=== PATIENT | male | born 1970 ===

== ENCOUNTER 2017-11-14 05:20 | Inpatient (IN) | payer OTHER ==
[~2017-11-14] VITALS: Ht 170.2 cm; Wt 88.5 kg
[2017-11-14] VITALS (12 sets, daily range): BP systolic 92–126; BP diastolic 51–77
[2017-11-14] MEDS ORDERED: NKM (06:20)
[2017-11-14] MEDS ORDERED: Lidocaine 1% MPF 10mg/ml 5ml ONE (06:57)
[2017-11-14] MEDS ORDERED: fentaNYL 100 mcg/2 mL IV ONE (06:57)
[2017-11-14] MEDS ORDERED: Midazolam 2mg/2ml Inj ONE (06:57)
[2017-11-14] MEDS ORDERED: ceFAZolin sod 2 GM in D5W 110 ML IVPB ONE (07:00)
[2017-11-14] MEDS ORDERED: Succinylcholine 20mg/ml 10ml vial ONE ×2 (07:15→09:30)
[2017-11-14] MEDS ORDERED: Zemuron 50mg/5ml Inj IV ONE (07:15)
[2017-11-14] MEDS ORDERED: EPINEPHrine 1mg/1ml Amp ONE (07:17)
[2017-11-14] MEDS ORDERED: Heparin 5000 units/ml inj ONE (07:17)
[2017-11-14] MEDS ORDERED: Bacitracin 50000 Units Vial ONE (07:18)
[2017-11-14] MEDS ORDERED: Bupivacaine 0.5% Inj 30 ml vial INJ ONE (07:18)
[2017-11-14] MEDS ORDERED: Gelfoam Size TOPIC ONE (07:18)
[2017-11-14] MEDS ORDERED: Thrombin 5000 units TOPIC ONE (07:18)
--- NOTE | 2017-11-14 07:34 | Pre-Procedure Note/Attestation ---
Pre-Procedure Note/Attestation Complete Prior to Procedure Procedure Narrative: ACDF C67 WITH ILIAC CREST BONE MARROW ASPIRATION Indications for Procedure Pre-Operative Diagnosis: CERVICAL RADICULOPATHY Attestation I attest that I discussed the nature of the procedure; its benefits; risks and complications; and alternatives (and the risks and benefits of such alternatives ), prior to the procedure, with the patient (or the patient's legal agency sales representative). I attest that, if there was a reasonable possibility of needing a blood transfusion, the patient (or the patient's legal agency sales representative) was given the [facility] standardized written summary, pursuant to the Anthony Marlene Blood Safety Act ([place] Health and Safety Code # 1645, as amended). I attest that I re-evaluated the patient just prior to the surgery and that there has been no change in the patient's H&P, except as documented below: Barrington Van MD Nov 14, 2017 07:34
[2017-11-14] MEDS ORDERED: Phenylephrine 10mg/ml Vial ONE (08:07)
[2017-11-14] MEDS ORDERED: Morphine Sulfate 10mg/ml Inj ONE (08:38)
[2017-11-14] MEDS ORDERED: Glycopyrrolate 0.2mg/ml 1ml Vial ONE (08:39)
[2017-11-14] MEDS ORDERED: Sodium Chloride 10ml vial INJ ONE (08:39)
[2017-11-14] MEDS ORDERED: Ketorolac 30mg Inj ONE (08:47)
[2017-11-14] MEDS ORDERED: LR 1000ml 1,000 ML IVLG SCH (08:59)
--- NOTE | 2017-11-14 08:59 | Anethesia Preoperative Eval ---
Anesthesia Pre-op PMH/ROS General Date of Evaluation: Nov 14, 2017 Time of Evaluation: 07:15 Anesthesiologist: Killian ASA Score: ASA 2 Mallampati Score Class I : Soft palate, uvula, fauces, pillars visible Class II: Soft palate, uvula, fauces visible Class III: Soft palate, base of uvula visible Class IV: Only hard plate visible Mallampati Classification: Class II Surgeon: Rehan Diagnosis: Cervical radiculopathy Surgical Procedure: ACDF C6-C7 Anesthesia History: none Social History: smoking - h/o, alcohol use - h/o abuse, drug use - h/o Family History: no anesthesia problems Allergies: Coded Allergies: No Known Allergies (Unverified , 11/13/17) Medications: see eMAR Past Medical History Cardiovascular: Denies: HTN, CAD, VA, valve dz, arrhythmia, other Pulmonary: Denies: asthma, COPD, JASMIN, other Gastrointestinal/Genitourinary: Reports: GERD - mild; Denies: CRI, ESRD, other Neurologic/Psychiatric: Reports: other - chronic pain; Denies: dementia, CVA, depression/anxiety, TIA Endocrine: Denies: DM, hypothyroidism, steroids, other HEENT: Denies: cataract (L), cataract (R), glaucoma, [place] (L), [place] (R), other Hematology/Immune: Denies: anemia, DVT, bleeding disorder, other Musculoskeletal/Integumentary: Denies: OA, RA, DJD, DDD, edema, other Other: other - overweight PMH Narrative: as above PSxH Narrative: None Anesthesia Pre-op Phys. Exam Physician Exam Last Vital Signs Date Time Temp Pulse Resp B/P (MAP) Pulse Ox O2 Delivery O2 Flow Rate FiO2 11/14/17 06:24 Room Air 11/14/17 06:21 97.9 71 18 126/76 (93) 96 97.9 Constitutional: NAD Neurologic: CN 2-12 intact Cardiovascular: RRR, no M/R/G Respiratory: CTA Gastrointestinal: S/NT/ND Airway Exam Mallampati Score: Class II MO: full Neck: short ROM: full Teeth: intact Dentures: no upper, no lower Anesthesia Pre-op A/P Labs see chart Studies Pre-op Studies: EKG - NSR, CXR - WNL Risk Assessment & Plan Assessment: ASA 2 Plan: GA with ETT neuromonitoring Status Change Before Surgery: No Pre-Antibiotics Drug: Ancef 2 gr. Given Within 1 Hr of Incision: Yes Time Given: 08:15 Nghia Daily MD Nov 14, 2017 08:58
[2017-11-14] MEDS ORDERED: Midazolam 2mg/2ml Inj IVP PRN (09:00)
[2017-11-14] MEDS ORDERED: Ketorolac 30mg Inj IV PRN (09:00)
[2017-11-14] MEDS ORDERED: Meperidine 50mg/ml Inj(FOR RIGORS ONLY) IV PRN (09:00)
[2017-11-14] MEDS ORDERED: DiphenhydrAMINE 50mg/ml Inj IVP PRN (09:00)
[2017-11-14] MEDS ORDERED: fentaNYL 100 mcg/2 mL IV PRN (09:00)
[2017-11-14] MEDS ORDERED: Propofol 1,000mg/ 100ml btl IV ONE (09:30)
[2017-11-14] MEDS ORDERED: LR 1000ml ONE (09:30)
[2017-11-14] MEDS ORDERED: Sterile Water Irrig 1000ml IRRIG ONE (09:30)
[2017-11-14] MEDS ORDERED: NS Irrig 1000ml ONE (09:30)
[2017-11-14] MEDS ORDERED: Vancomycin 1gm inj IVPB ONE (09:46)
--- NOTE | 2017-11-14 10:37 | Diagnostic Imaging Report ---
INDICATION: Pain, intraoperative TECHNIQUE: Intraoperative imaging Fluoroscopy time: 12 seconds Total dose: 0.321 mGym2 Total number of images: 5 COMPARISON: None FINDINGS: Intraoperative images document a surgical tool anterior to the C6-7 disc, subsequent surgical tool projected over C5-6 level, subsequent anterior fusion of the lower cervical spine at C6-7. IMPRESSION: Intraoperative imaging, as described
--- NOTE | 2017-11-14 10:48 | Brief Operative Note ---
Immediate Post Operative Note Operative Note Pre-op Diagnosis: CERVICAL RADICULOPATHY Procedure: acdf c67 with iliac crest bone marrow aspirate Post-op Diagnosis: cervical radiculopathy Post-op Diagnosis: same as pre-op Findings: consistent w/pre-op dx studies Surgeon: LATOYA Sourcing Coordinator: JUAN Anesthesiologist: ZAINAB Anesthesia: general Specimen: yes Complications: none Condition: stable Fluids: 1000CC Estimated Blood Loss: none Drains: none Implant(s) used?: No Barrington Van MD Nov 14, 2017 10:48
--- NOTE | 2017-11-14 12:34 | Immediate Post-Op Evaluation ---
Immediate Post-Op Evalulation Immediate Post-Op Evalulation Procedure: ACDF C6-C7 Date of Evaluation: Nov 14, 2017 Time of Evaluation: 10:35 IV Fluids: 1000 Blood Products: none Estimated Blood Loss: <50 Urinary Output: 100 Blood Pressure Systolic: 124 Blood Pressure Diastolic: 72 Pulse Rate: 86 Respiratory Rate: 20 O2 Sat by Pulse Oximetry: 99 Temperature (Fahrenheit): 97.8 Pain Score (1-10): 1 Nausea: No Vomiting: No Complications none Patient Status: reacts, patent, extubated, none Hydration Status: adequate Nghia Daily MD Nov 14, 2017 12:34
[2017-11-14] MEDS ORDERED: Morphine Sulfate 2mg/ml Inj IV PRN (13:00)
[2017-11-14] MEDS ORDERED: Morphine Sulfate 4mg/ml Inj (IV USE ONLY) IV PRN (13:00)
[2017-11-14] MEDS ORDERED: Norco 5mg/325mg tab ORAL PRN (13:00)
[2017-11-14] MEDS ORDERED: Naloxone 0.4mg/ml Inj IVP PRN (13:00)
[2017-11-14] MEDS: Morphine Sulfate 4mg/ml Inj (IV USE ONLY) IV PRN ×2 (13:19→16:20)
[2017-11-14] MEDS: D5 1/2NS 1,000 ML IV SCH ×2 (13:19→21:42)
[2017-11-14] MEDS ORDERED: ceFAZolin sod 1 GM in D5W 55 ML IV SCH (14:00)
[2017-11-14] MEDS ORDERED: Acetaminophen (Non formulary) 100 ML IV ONE (15:00)
[2017-11-14] MEDS ORDERED: Chloraseptic Spray 20mL Bottle ORAL PRN (15:00)
[2017-11-14] MEDS: ceFAZolin 1gm/50ml Premix 50 ML IV SCH (16:20)
[2017-11-14] MEDS: HYDROcodone/Acetamin 7.5/325 tab ORAL PRN ×2 (18:25→21:42)
[2017-11-14] MEDS: Docusate 100mg cap ORAL SCH (18:25)
--- NOTE | 2017-11-14 21:25 | History and Physical ---
History of Present Illness General Date patient seen: Nov 14, 2017 Present Illness HPI 47 year old male with hx of cervical radiculopathy, admitted for ACDF C6-C7. Postoperatively, pt is admitted to medical floor for postop care. Allergies: Coded Allergies: No Known Allergies (Unverified , 11/13/17) Medication History Scheduled No Known Medications* (NKM - No Known Medications*), 0 ., (Reported) Scheduled PRN Hydrocodone Bit/Acetaminophen 5-325* ([place] 5-325*), 1 TAB ORAL Q6H PRN for For Pain, (Reported) Patient History Healthcare decision maker brianda(cathy) Resuscitation status Full Code Advanced Directive on File No Past Medical/Surgical History Past Medical/Surgical History: (1) Cervical radiculopathy Review of Systems All Other Systems: negative except mentioned in HPI Physical Exam General Appearance: WD/WN Lines, tubes and drains: peripheral HEENT: normocephalic Neck: non-tender, normal alignment, limited range of motion Respiratory/Chest: chest wall non-tender, lungs clear Cardiovascular/Chest: normal peripheral pulses Abdomen: normal bowel sounds Last 24 Hour Vital Signs Date Time Temp Pulse Resp B/P (MAP) Pulse Ox O2 Delivery O2 Flow Rate FiO2 11/14/17 16:00 98.4 75 20 113/77 (89) 98 98.4 11/14/17 13:49 97.6 11/14/17 12:41 Nasal Cannula 2.0 11/14/17 12:35 97.6 72 19 113/77 (89) 96 97.6 11/14/17 12:34 208.0 86 20 99 11/14/17 11:35 98.3 75 20 109/60 (76) 99 98.3 11/14/17 11:28 98.8 11/14/17 11:25 98.8 80 13 102/65 100 Nasal Cannula 3 98.8 11/14/17 11:10 80 17 111/62 100 Nasal Cannula 3 11/14/17 10:58 98.6 85 15 102/54 95 Nasal Cannula 3 98.6 11/14/17 10:58 98.5 11/14/17 10:50 83 14 104/65 95 Nasal Cannula 3 11/14/17 10:39 97 17 92/51 99 Simple Mask 6 11/14/17 10:34 96 15 92/56 99 Simple Mask 6 11/14/17 10:29 98.5 92 20 104/70 99 Simple Mask 6 98.5 11/14/17 06:24 Room Air 11/14/17 06:21 97.9 71 18 126/76 (93) 96 97.9 Intake and Output 11/13/17 11/14/17 19:00 07:00 # Voids 1 Height (Feet): 5 Height (Inches): 7.00 Weight (Pounds): 195 Medications Current Medications Medications (Trade) Dose Ordered Sig/Jairon Route PRN Reason Start Time Stop Time Status Last Admin Dose Admin Acetaminophen/ Hydrocodone Bitart ([place] 5/325) 1 tab Q3H PRN ORAL pain score 1-3 11/14/17 13:00 11/21/17 12:59 Acetaminophen/ Hydrocodone Bitart ([place] 7.5/325) 1 tab Q3H PRN ORAL pain score 4-6 11/14/17 13:00 11/21/17 12:59 Acetaminophen/ Hydrocodone Bitart ([place] 7.5/325) 2 tab Q3H PRN ORAL pain scale 7-10 11/14/17 13:00 11/21/17 12:59 11/14/17 18:25 Cefazolin Sodium 50 ml @ 100 mls/hr Q8H IV 11/14/17 16:00 11/21/17 15:59 11/14/17 16:20 Dextrose/Sodium Chloride 1,000 ml @ 100 mls/hr Q10H IV 11/14/17 13:00 12/14/17 12:59 11/14/17 13:19 Docusate Sodium (Colace) 100 mg TWICE A DAY ORAL 11/14/17 18:00 12/14/17 17:59 11/14/17 18:25 Morphine Sulfate (Morphine Sulfate) 2 mg Q4H PRN IV Mild Pain (Pain Scale 1-3) 11/14/17 13:00 11/21/17 12:59 Morphine Sulfate (Morphine Sulfate) 4 mg Q3H PRN IV Severe Pain (Pain Scale 7-10) 11/14/17 13:00 11/21/17 12:59 11/14/17 16:20 Morphine Sulfate (Morphine Sulfate) 4 mg Q4H PRN IV Moderate Pain (Pain Scale 4-6) 11/14/17 13:00 11/21/17 12:59 Naloxone HCl (Narcan) 0.1 mg PRN PRN IVP RR<12/min, pt unarousable 11/14/17 13:00 12/14/17 12:59 Phenol/Menthol (Chloraseptic) 1 spray Q3H PRN ORAL SORE THROAT 11/14/17 15:00 12/14/17 14:59 11/14/17 18:27 Assessment/Plan Problem List: (1) ACDF C6-C7 (2) Cervical radiculopathy ICD Codes: M54.12 - Radiculopathy, cervical region SNOMED: [id number] Assessment/Plan pain management symptomatic treatment dvt prophylaxis Teresita Lora MD Nov 14, 2017 21:25
--- NOTE | 2017-11-14 22:15 | Operative Note - Dictated ---
DATE OF OPERATION: 11/14/2017 PREOPERATIVE DIAGNOSIS: C6-C7 disc protrusion with stenosis and right upper extremity radiculopathy. POSTOPERATIVE DIAGNOSIS: C6-C7 disc protrusion with stenosis and right upper extremity radiculopathy. PROCEDURE PERFORMED: 1. Anterior cervical interbody fusion with diskectomy and anterior foraminotomy at C6-C7. 2. Anterior cervical instrumentation at C6-C7. 3. Application of biomechanical PEEK device at C6-C7. 4. Placement of allograft and local autograft and bone marrow aspirate concentrate at C6-C7. 5. Acquisition of bone marrow aspirate from the right iliac crest. SURGEON: Barrington Van M.D. TIRE ROOM SUPERVISOR: Joon Vazquez M.D. ANESTHESIA: General tracheal anesthesia. SPECIMEN: C6-C7 disk. ANESTHESIOLOGIST: Nghia Daily M.D. ESTIMATED BLOOD LOSS: Less than 50 mL. IV ANTIBIOTICS: 2 g of Ancef. COMPLICATIONS: None. BACKGROUND INDICATIONS: The patient is a pleasant gentleman who failed nonoperative treatment and option for above treatment was given. Risks, alternatives, and benefits were discussed with the patient at length. Risks include, but are not limited to, anesthesia complications including , medical complications including liver, kidney, cardiopulmonary deficits, dysphonia, dysphagia, hematoma of the neck, nerve root injury, paralysis, spinal cord injury, CSF leak, dural tear, fracture of the hardware, loosening of the hardware, need for revision, decompression and fusion, swallowing difficulties, esophageal injury, tracheal injury, recurrent laryngeal nerve injury as well as other complications including . The patient understood and wished to proceed. Written and verbal consent was given. All the patient's questions were answered. No guarantees were given. OPERATIVE FINDINGS: Herniated nucleus pulposus at C6-C7 with central stenosis, lateral recess stenosis, foraminal stenosis and impingement of the exiting C6 nerve roots bilaterally. DESCRIPTION OF OPERATION: The patient was brought into the operating room supine on a stretcher. Appropriate IV lines were placed by the anesthesiologist and 2 g of Ancef was administered. The patient was induced and intubated without complication. The patient was positioned on the operating room table. The neck was placed in a lordotic alignment. The arms were tucked by the side. All bony prominences were well padded as well as the extremities. SSEP neurophysiological leads and EMG leads were placed and remained stable throughout the case. Preoperative fluoroscopy revealed the planned incision to be over the C6-C7 interspace. Fluoroscopy showed the neck to be in adequate alignment. The neck was prepped and draped in usual sterile fashion. Me and my assistant attorney general were prepped and gowned appropriately. At this point, the incision was carried out with a scalpel on the anterior right side of the neck in the crease of the neck. Hemostasis was achieved with bipolar cautery. The platysma was incised in line with the skin incision. Blunt dissection was carried out in the interval between the strap muscles and the sternocleidomastoid. Superficial cervical fascia was dissected caudally as well as cephalad. Carotid pulse was palpated and found to be well lateral to the field of dissection. Deep cervical fascia was encountered. Once the deep cervical fascia was found, blunt dissection of the kidneys was carried out as well as finger dissection to find the prevertebral space. The longus colli was found on both sides of the spine. The longus coli was subperiosteally dissected off of the spine. At this point, retractors were set into place. Spinal needle was used to identify the C6-C7 level. The spinal needle was placed at the C6. The spinal needle was placed at the C5-C6 level as it was difficult to visualize the C6-C7 level. Once the C5-C6 level was found, [place] and the retractors were placed at the C6-C7 level and the C6-C7 level with marked appropriately. At this point, attention was diverted to the diskectomy. The intraoperatively sterilely draped microscope was used throughout the case from skin to skin as well as for microdissection of the neural elements. At this point with straight and curved curettes, #2 and #3 Kerrison punches, a radical diskectomy was done. Endplate cartilage was removed. Endplate bone was well preserved. A high-speed drill was used to do uncovertebrectomy to the level of the posterior longitudinal ligament. Once this was done, the disk space distractor was set into place and with a Microsect #2 curette, the PLL was carefully peeled off of the dural sac and was removed with the aid of #1 and #2 Kerrison punches for an anterior foraminotomy with exiting C7 nerve roots bilaterally was accomplished and significant stenosis centrally in the lateral recess as well as the foramina, which was completely patent by the end of the decompression. Valsalva 40 mmHg was done. There was no CSF leak. Complete decompression was assured. The disk space and the dura and the nerve roots were copiously irrigated with triple antibiotic solution. Before the case was started in the neck before the skin incision in the neck, the iliac crest was also prepped and draped in the usual sterile fashion, was prepped out along with the anterior neck. A Jamshidi needle was used to insert into the right iliac crest and 30 mL of bone marrow was aspirated from the right iliac crest in 3 different 10 mL vials and was sent off for concentration. Now, the concentrate was ready and the trials from the spinal element system was used at the C6-C7 level. A large footprint 7 mm in height lordotic PEEK interbody device from the spinal element system was chosen, was packed with [place] allograft and local autograft, which was harvested from the vertebral bodies as well as the bone marrow aspirate concentrate and this peek interbody device was now tamped into place at C6-C7 with excellent recreation of lordosis and apposition against the endplate. Once this was done, a 12 mm [place] anterior cervical plate was chosen, was bent into a lordotic shape, and was placed at C6-C7 and was fixed to the anterior surface of the C6 and C7 vertebral bodies with 14 mm self-drilling screws at C6 and 12 mm self-drilling screws at C7. Each screw had excellent purchase and sat below the locking mechanism of the Holland plate appropriately. Final AP and lateral fluoroscopy revealed all instrumentation to be in excellent position. Hemostasis was achieved with Gelfoam and cautery. There was no bleeding at the end of the case and therefore decision was made not to use a drain. The platysma was closed with 3-0 Vicryl sutures. The subcuticular layer was closed with 3-0 Monocryl suture. The skin was closed with Dermabond. Sterile dressing tape was placed at the hip as well as on the neck incision. All sponge, needle, and instrument counts were correct. There was no complications during the case. EBL was about 70 mL. A cervical collar was placed. The patient was extubated and taken to the recovery room in stable condition, was found to be neurovascularly intact, and was admitted to the hospital for monitoring. Barrington Van M.D. DR: AJAY JOB#: [id number] CC:
[2017-11-15] VITALS: BP 110/73
[2017-11-15] MEDS: ceFAZolin 1gm/50ml Premix 50 ML IV SCH ×2 (01:13→08:13)
[2017-11-15] MEDS: HYDROcodone/Acetamin 7.5/325 tab ORAL PRN ×2 (01:24→08:15)
[2017-11-15 04:00] VITALS: BP 110/64
[2017-11-15 08:00] VITALS: BP 141/78
[2017-11-15] MEDS: Docusate 100mg cap ORAL SCH (08:12)
[2017-11-15] MEDS: D5 1/2NS 1,000 ML IV SCH (08:15)
[2017-11-15] MEDS ORDERED: NORCO 5-325 TA1 EACH ORAL (08:59)
[2017-11-15 11:49] VITALS: BP 128/77
--- NOTE | 2017-11-15 12:07 | Pulmonology Progress Note ---
Assessment/Plan Problems: (1) ACDF C6-C7 (2) Cervical radiculopathy Assessment/Plan pain management symptomatic treatment dc planning dvt prophylaxis. Subjective ROS Limited/Unobtainable: No Constitutional: Reports: no symptoms HEENT: Repors: no symptoms Allergies: Coded Allergies: No Known Allergies (Unverified , 11/13/17) Objective Last 24 Hour Vital Signs Date Time Temp Pulse Resp B/P (MAP) Pulse Ox O2 Delivery O2 Flow Rate FiO2 11/15/17 11:49 97.5 80 18 128/77 (94) 80 97.5 11/15/17 09:00 Room Air 11/15/17 08:45 98.0 11/15/17 08:00 97.8 86 18 141/78 (99) 94 97.8 11/15/17 04:00 98.0 87 18 110/64 (79) 98 98.0 11/15/17 00:00 98.4 79 18 110/73 (85) 98 98.4 11/14/17 21:00 Room Air 11/14/17 20:00 97.7 79 20 119/71 (87) 98 97.7 11/14/17 16:00 98.4 75 20 113/77 (89) 98 98.4 11/14/17 13:49 97.6 11/14/17 12:41 Nasal Cannula 2.0 11/14/17 12:35 97.6 72 19 113/77 (89) 96 97.6 11/14/17 12:34 208.0 86 20 99 Intake and Output 11/14/17 11/15/17 19:00 07:00 Intake Total 2460 ml 1680 ml Output Total 130 ml Balance 2330 ml 1680 ml Intake Oral 660 ml 480 ml IV Total 1800 ml 1200 ml Output Urine Total 100 ml Estimated Blood Loss 30 ml # Voids 2 General Appearance: WD/WN HEENT: normocephalic, atraumatic Respiratory/Chest: chest wall non-tender, lungs clear Cardiovascular: normal peripheral pulses, normal rate Abdomen: normal bowel sounds, soft, non tender Genitourinary: normal external genitalia Skin: no rash 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 Lymphatic: no neck adenopathy Current Medications Medications (Trade) Dose Ordered Sig/Jairon Route PRN Reason Start Time Stop Time Status Last Admin Dose Admin Acetaminophen/ Hydrocodone Bitart ([place] 5/325) 1 tab Q3H PRN ORAL pain score 1-3 11/14/17 13:00 11/21/17 12:59 Acetaminophen/ Hydrocodone Bitart ([place] 7.5/325) 1 tab Q3H PRN ORAL pain score 4-6 11/14/17 13:00 11/21/17 12:59 11/15/17 01:24 Acetaminophen/ Hydrocodone Bitart ([place] 7.5/325) 2 tab Q3H PRN ORAL pain scale 7-10 11/14/17 13:00 11/21/17 12:59 11/15/17 08:15 Cefazolin Sodium 50 ml @ 100 mls/hr Q8H IV 11/14/17 16:00 11/21/17 15:59 11/15/17 08:13 Dextrose/Sodium Chloride 1,000 ml @ 100 mls/hr Q10H IV 11/14/17 13:00 12/14/17 12:59 11/15/17 08:15 Docusate Sodium (Colace) 100 mg TWICE A DAY ORAL 11/14/17 18:00 12/14/17 17:59 11/15/17 08:12 Morphine Sulfate (Morphine Sulfate) 2 mg Q4H PRN IV Mild Pain (Pain Scale 1-3) 11/14/17 13:00 11/21/17 12:59 Morphine Sulfate (Morphine Sulfate) 4 mg Q3H PRN IV Severe Pain (Pain Scale 7-10) 11/14/17 13:00 11/21/17 12:59 11/14/17 16:20 Morphine Sulfate (Morphine Sulfate) 4 mg Q4H PRN IV Moderate Pain (Pain Scale 4-6) 11/14/17 13:00 11/21/17 12:59 Naloxone HCl (Narcan) 0.1 mg PRN PRN IVP RR<12/min, pt unarousable 11/14/17 13:00 12/14/17 12:59 Ondansetron HCl (Zofran) 4 mg Q6H PRN IVP Nausea & Vomiting 11/14/17 22:00 12/14/17 21:59 11/15/17 01:24 Phenol/Menthol (Chloraseptic) 1 spray Q3H PRN ORAL SORE THROAT 11/14/17 15:00 12/14/17 14:59 11/14/17 18:27 Teresita Lora MD Nov 15, 2017 12:07
[2017-11-15 12:21] VITALS: BP 124/76
--- NOTE | 2017-11-15 12:21 | 48 Hour Post Anesthesia Eval ---
Post Anesthesia Evaluation Procedure: ACDF C6-C7 Date of Evaluation: Nov 15, 2017 Time of Evaluation: 12:20 Blood Pressure Systolic: 124 0: 76 Pulse Rate: 68 Respiratory Rate: 20 Temperature (Fahrenheit): 97.6 O2 Sat by Pulse Oximetry: 98 Airway: patent Nausea: No Vomiting: No Pain Intensity: 2 Hydration Status: adequate Cardiopulmonary Status: stable Mental Status/LOC: patient returned to baseline Follow-up Care/Observations: n/a Post-Anesthesia Complications: none Follow-up care needed: ready to discharge Nghia Daily MD Nov 15, 2017 12:21
--- NOTE | 2017-11-17 13:34 | Discharge Summary ---
Discharge Summary Hospital Course Date of Admission Nov 14, 2017 at 05:20 Date of Discharge Nov 15, 2017 at 12:00 Admitting Diagnosis cervical radiculopathy Reason for Hospitalization: elective surgery HPI Elmer Serna is a 47 year old male who was admitted on Nov 14, 2017 at 05: 20 for cervical radiculopathy Patient was admitted for elective surgery. Consultations dr Lora IM Procedures s/p 11/14/[address] Van 1. Anterior cervical interbody fusion with diskectomy and anterior foraminotomy at C6-C7. 2. Anterior cervical instrumentation at C6-C7. 3. Application of biomechanical PEEK device at C6-C7. 4. Placement of allograft and local autograft and bone marrow aspirate concentrate at C6-C7. 5. Acquisition of bone marrow aspirate from the right iliac crest. Hospital Course s/p surgery course of recovery uneventful initially IVF s/p empiric perioperative abx neurovascular intact dressing clean dry and intact pain management addressed and controlled ambulated freely [place] cervical collar on started on diet as tolerated Chloraseptic [place] prn for comfort able to tolerate tolerated diet voided freely bowel regimen instituted patient was stable for discharge discharge instruction provided outpatient follow-up with surgeon as advised FINAL DIAGNOSES cervical radiculopathy s/p ACDF C6- 7 with iliac crest bone marrow aspirate Discharge Medications Continued Medications: Hydrocodone Bit/Acetaminophen 5-325* ([place] 5-325*) 1 Each Tablet 1 TAB ORAL Q6H PRN for For Pain, #40 TAB 0 Refills (This prescription has been renewed) Discharge Condition Upon Discharge: stable Discharge Disposition Patient was discharged to Home (01) Discharge Instructions Discharge Instructions Special Instructions I have been assigned to complete a D/C Summary on this account. I was not involved in the patient management Aisha Hayes CONTINUOUS PROCESS TANNER ROTARY DRUM Nov 17, 2017 13:34
== END 2017-11-15 12:00 | disposition home or self-care (01) | DRG 473 ==
LOC: SDSOVERFLO 05:20 → 3E 11:13
PROC: 0RB30ZZ Excision of Cervical Vertebral Disc, Open Approach (ICD-10-PCS; principal; 2017-11-14 07:30)
PROC: 07DR3ZZ Extraction of Iliac Bone Marrow, Percutaneous Approach (ICD-10-PCS; principal; 2017-11-14 07:30)
PROC: 01N10ZZ Release Cervical Nerve, Open Approach (ICD-10-PCS; principal; 2017-11-14 07:30)
PROC: 0RG10A0 Fusion of Cervical Vertebral Joint with Interbody Fusion Device, Anterior Approach, Anterior Column, Open Approach (ICD-10-PCS; principal; 2017-11-14 07:30)
DX: M50.123 Cervical disc disorder at C6-C7 level with radiculopathy (principal); M48.02 Spinal stenosis, cervical region
CPT/HCPCS: 36415; 72040; 76001; 86850; 86900; 86901; 87081; 94003; 94150; J2250; J2370; J2405